=== PATIENT | female | born 1950 | race Caucasian/White ===

== ENCOUNTER 2022-01-04 19:48 | Inpatient (IN) ==
[2022-01-04] MEDS ORDERED: Morphine Sulfate 2 MG/ML SYRINGE IVP ONE (19:59)
[2022-01-04] MEDS ORDERED: Ondansetron 4 MG/2 ML VIAL IVP ONE ×2 (20:00→23:32)
[2022-01-04 20:43] LABS: Basophils # 0.1 K/mcL (0.0-0.2); Basophils % 0.8 %; Eosinophils # 0.2 K/mcL (0.0-0.6); Eosinophils % 1.7 %; Hematocrit 39.9 % (35.3-44.9); Hemoglobin 13.7 g/dL (11.5-15.4); Immature Granulocytes % 0.9 % (0-4); Lymphocytes # 3.4 K/mcL (0.6-4.6); Lymphocytes % 32.9 %; Mean Corpuscular HGB Conc 34.3 g/dL (31.6-35.5); Mean Corpuscular Hemoglobin 30.1 pg (28.0-33.3); Mean Corpuscular Volume 87.7 fL (83.0-100.0); Mean Platelet Volume 10.7 fL (9.4-12.4); Monocytes # 0.8 K/mcL (0.0-1.3); Monocytes % 7.2 %; Neutrophils # 5.9 K/mcL (1.6-8.9); Platelet Count 204 K/mcL (140-400); Red Blood Count 4.55 M/mcL (3.82-4.97); Segmented Neutrophils % 56.5 %; White Blood Count 10.5 K/mcL (4.3-11.1)
[2022-01-04 21:05] LABS: BUN/Creatinine Ratio 26 (6-26); Blood Urea Nitrogen 19 mg/dL (8-23); Calcium 9.7 mg/dL (8.6-10.3); Carbon Dioxide 24 mEq/L (23-29); Chloride 101 mEq/L (98-107); Glucose 135 mg/dL (70-105); Osmolality,Calculated 286 (280-300); Potassium 4.8 mEq/L (3.5-5.1); Sodium 136 mEq/L (136-145); eGFR For African Americans > 60 (> 60); eGFR For Non-African Americans > 60 (> 60)
[2022-01-04] MEDS ORDERED: *HR* FentaNYL (PF) 100 MCG/2 ML VIAL IVP ONE (21:46)
[2022-01-04] MEDS ORDERED: 0.9 % Sodium Chloride 1,000 ML IVC SCH (23:45)
[2022-01-04] MEDS ORDERED: Dextrose Gel 15 GM/37.5 ML TUBE PO PRN ×2 (23:52)
[2022-01-04] MEDS ORDERED: *HR* Dextrose 50 % in Water (Syg) 50 ML SYRINGE IVP PRN (23:52)
[2022-01-04] MEDS ORDERED: D5% in Water 1,000 ML IVC PRN (23:52)
[2022-01-04] MEDS ORDERED: Melatonin 3 MG TABLET PO PRN (23:53)
[2022-01-04] MEDS ORDERED: Ondansetron 4 MG/2 ML VIAL IVP PRN (23:53)
[2022-01-04] MEDS ORDERED: Naloxone 0.4 MG/ML INJ IVP PRN (23:53)
[2022-01-04] MEDS ORDERED: Acetaminophen 325 MG TABLET PO PRN ×2 (23:53)
[2022-01-05] MEDS: *HR* OxyCODONE Immed Rel 5 MG TABLET PO PRN ×3 (00:09→21:09)
[2022-01-05] MEDS: Insulin LISPRO 300 UNITS/3 ML VIAL SUBQ SCH ×3 (00:29→17:59)
[2022-01-05] MEDS ORDERED: *HR* Heparin 5,000 UNIT/ML VIAL SQ ONE (01:30)
[2022-01-05 06:53] LABS: Hematocrit 36.5 % (35.3-44.9); Mean Corpuscular HGB Conc 32.6 g/dL (31.6-35.5); Mean Corpuscular Hemoglobin 29.5 pg (28.0-33.3); Mean Corpuscular Volume 90.6 fL (83.0-100.0); Mean Platelet Volume 10.6 fL (9.4-12.4); Platelet Count 189 K/mcL (140-400); Red Blood Count 4.03 M/mcL (3.82-4.97); Red Cell Distribution Width 13.2 % (11.5-14.5); White Blood Count 11.9 K/mcL (4.3-11.1)
[2022-01-05 06:55] LABS: Hemoglobin 11.9 g/dL (11.5-15.4)
[2022-01-05 07:01] LABS: INR 1.1; Prothrombin Time 12.2 Seconds (9.4-12.1)
[2022-01-05 07:04] LABS: Activated Partial Thrombo Time 34.1 Seconds (26.0-36.0)
[2022-01-05 07:14] LABS: BUN/Creatinine Ratio 23 (6-26); Blood Urea Nitrogen 14 mg/dL (8-23); Calcium 8.9 mg/dL (8.6-10.3); Carbon Dioxide 27 mEq/L (23-29); Chloride 102 mEq/L (98-107); Glucose 267 mg/dL (70-105); Osmolality,Calculated 292 (280-300); Potassium 4.2 mEq/L (3.5-5.1); Sodium 136 mEq/L (136-145); eGFR For African Americans > 60 (> 60); eGFR For Non-African Americans > 60 (> 60)
[2022-01-05] MEDS ORDERED: Ringers Solution, Lactated 1,000 ML IVC SCH ×2 (08:15→14:59)
[2022-01-05] MEDS ORDERED: Ringers Solution, Lactated 1,000 ML ONE (08:22)
[2022-01-05] MEDS ORDERED: Famotidine 20 MG/2 ML VIAL IVP ONE (11:46)
[2022-01-05] MEDS ORDERED: Acetaminophen IV 1,000 MG/100 ML BAG IVPB ONE (11:46)
[2022-01-05] MEDS ORDERED: Ondansetron 4 MG/2 ML VIAL ONE (12:54)
[2022-01-05] MEDS ORDERED: *HR* Midazolam HCl 2 MG/2 ML VIAL ONE (12:54)
[2022-01-05] MEDS ORDERED: *HR* FentaNYL (PF) 100 MCG/2 ML VIAL ONE (12:54)
[2022-01-05] MEDS ORDERED: Lidocaine -MPF 2% 5 ML VIAL ONE (12:55)
[2022-01-05] MEDS ORDERED: *HR* Propofol 200 MG/20 ML VIAL IVP ONE (12:55)
[2022-01-05] MEDS ORDERED: Clindamycin 900 MG/50 ML 900 MG/50 ML IV.SOLN IVPB ONE ×2 (12:58→13:44)
[2022-01-05] MEDS ORDERED: Dextrose Gel 15 GM/37.5 ML TUBE PO PRN ×2 (14:59)
[2022-01-05] MEDS ORDERED: Acetaminophen 325 MG TABLET PO PRN (14:59)
[2022-01-05] MEDS ORDERED: *HR* Dextrose 50 % in Water (Syg) 50 ML SYRINGE IVP PRN (14:59)
[2022-01-05] MEDS ORDERED: D5% in Water 1,000 ML IVC PRN (14:59)
[2022-01-05] MEDS ORDERED: Ondansetron 4 MG/2 ML VIAL IVP PRN (14:59)
[2022-01-05] MEDS ORDERED: Naloxone 0.4 MG/ML INJ IVP PRN (14:59)
[2022-01-05] MEDS ORDERED: Melatonin 3 MG TABLET PO PRN (14:59)
[2022-01-05] MEDS ORDERED: Gabapentin 300 MG CAPSULE PO SCH (15:00)
[2022-01-05] MEDS ORDERED: Ondansetron 4 MG/2 ML VIAL IVP ONE (16:16)
[2022-01-05] MEDS: Gabapentin 300 MG CAPSULE PO SCH ×2 (17:10→21:24)
[2022-01-05] MEDS: amLODIPine 5 MG TABLET PO SCH (21:08)
[2022-01-05] MEDS: Clindamycin 900 MG/50 ML 900 MG/50 ML IV.SOLN IVPB SCH (21:24)
[2022-01-06] MEDS: Insulin LISPRO 300 UNITS/3 ML VIAL SUBQ SCH ×4 (00:59→17:13)
[2022-01-06] MEDS: Clindamycin 900 MG/50 ML 900 MG/50 ML IV.SOLN IVPB SCH (04:19)
[2022-01-06] MEDS: Acetaminophen 325 MG TABLET PO PRN (05:51)
[2022-01-06 09:00] LABS: Basophils # 0.1 K/mcL (0.0-0.2); Basophils % 0.8 %; Eosinophils # 0.2 K/mcL (0.0-0.6); Eosinophils % 2.5 %; Hematocrit 30.2 % (35.3-44.9); Immature Granulocytes % 0.6 % (0-4); Lymphocytes % 20.4 %; Mean Corpuscular HGB Conc 32.5 g/dL (31.6-35.5); Mean Corpuscular Hemoglobin 29.9 pg (28.0-33.3); Mean Corpuscular Volume 92.1 fL (83.0-100.0); Mean Platelet Volume 10.4 fL (9.4-12.4); Monocytes # 0.9 K/mcL (0.0-1.3); Monocytes % 9.1 %; Neutrophils # 6.4 K/mcL (1.6-8.9); Platelet Count 155 K/mcL (140-400); Red Blood Count 3.28 M/mcL (3.82-4.97); Red Cell Distribution Width 13.4 % (11.5-14.5); Segmented Neutrophils % 66.6 %; White Blood Count 9.6 K/mcL (4.3-11.1)
[2022-01-06] MEDS ORDERED: Cholecalciferol (D-3) 1,000 UNIT (25MCG) TABLET PO SCH (09:00)
[2022-01-06 09:01] LABS: Hemoglobin 9.8 g/dL (11.5-15.4)
[2022-01-06 09:18] LABS: Magnesium 1.6 mg/dL (1.6-2.6); Phosphorous 3.1 mg/dL (2.7-4.5)
[2022-01-06 09:19] LABS: BUN/Creatinine Ratio 19 (6-26); Blood Urea Nitrogen 11 mg/dL (8-23); Calcium 8.3 mg/dL (8.6-10.3); Carbon Dioxide 30 mEq/L (23-29); Chloride 101 mEq/L (98-107); Glucose 162 mg/dL (70-105); Osmolality,Calculated 285 (280-300); Potassium 4.3 mEq/L (3.5-5.1); Sodium 136 mEq/L (136-145); eGFR For African Americans > 60 (> 60); eGFR For Non-African Americans > 60 (> 60)
[2022-01-06] MEDS: *HR* OxyCODONE Immed Rel 5 MG TABLET PO PRN ×2 (10:35→18:34)
[2022-01-06] MEDS: amLODIPine 5 MG TABLET PO SCH ×2 (11:16→21:14)
[2022-01-06] MEDS: Aspirin Enteric Coated 325 MG Tablet PO SCH (11:23)
[2022-01-06] MEDS: Cholecalciferol (D-3) 1,000 UNIT (25MCG) TABLET PO SCH (11:23)
[2022-01-06] MEDS: Gabapentin 300 MG CAPSULE PO SCH ×3 (11:23→21:13)
[2022-01-07] MEDS: Acetaminophen 325 MG TABLET PO PRN ×3 (00:06→21:36)
[2022-01-07] MEDS: Insulin LISPRO 300 UNITS/3 ML VIAL SUBQ SCH ×5 (00:09→21:44)
[2022-01-07] MEDS: Cholecalciferol (D-3) 1,000 UNIT (25MCG) TABLET PO SCH (08:10)
[2022-01-07] MEDS: Aspirin Enteric Coated 325 MG Tablet PO SCH (08:10)
[2022-01-07] MEDS: Gabapentin 300 MG CAPSULE PO SCH ×3 (08:11→21:36)
[2022-01-07] MEDS: amLODIPine 5 MG TABLET PO SCH ×2 (08:11→21:37)
[2022-01-07] MEDS: *HR* OxyCODONE Immed Rel 5 MG TABLET PO PRN ×2 (08:13→15:56)
[2022-01-07] MEDS ORDERED: Ondansetron ODT 4 MG TAB.RAPDIS SL PRN (13:48)
[2022-01-08] MEDS: *HR* OxyCODONE Immed Rel 5 MG TABLET PO PRN (07:49)
[2022-01-08] MEDS: Cholecalciferol (D-3) 1,000 UNIT (25MCG) TABLET PO SCH (07:49)
[2022-01-08] MEDS: amLODIPine 5 MG TABLET PO SCH ×2 (07:49→20:13)
[2022-01-08] MEDS: Insulin LISPRO 300 UNITS/3 ML VIAL SUBQ SCH ×4 (07:50→22:04)
[2022-01-08] MEDS: Acetaminophen 325 MG TABLET PO PRN ×3 (07:51→21:10)
[2022-01-08] MEDS: Gabapentin 300 MG CAPSULE PO SCH ×3 (14:22→20:13)
[2022-01-08] MEDS: Aspirin Enteric Coated 325 MG Tablet PO SCH (14:28)
[2022-01-08] MEDS: Insulin DETEMIR 100 UNIT/ML X5UNITS SUBQ SCH (22:06)
[2022-01-09] MEDS: Acetaminophen 325 MG TABLET PO PRN ×3 (03:30→20:11)
[2022-01-09 04:59] LABS: Basophils # 0.1 K/mcL (0.0-0.2); Basophils % 0.7 %; Eosinophils # 0.4 K/mcL (0.0-0.6); Eosinophils % 4.9 %; Hematocrit 25.4 % (35.3-44.9); Hemoglobin 8.5 g/dL (11.5-15.4); Immature Granulocytes % 0.7 % (0-4); Lymphocytes # 1.9 K/mcL (0.6-4.6); Lymphocytes % 22.3 %; Mean Corpuscular HGB Conc 33.5 g/dL (31.6-35.5); Mean Corpuscular Hemoglobin 30.1 pg (28.0-33.3); Mean Corpuscular Volume 90.1 fL (83.0-100.0); Mean Platelet Volume 10.4 fL (9.4-12.4); Monocytes # 0.8 K/mcL (0.0-1.3); Monocytes % 9.2 %; Neutrophils # 5.3 K/mcL (1.6-8.9); Platelet Count 172 K/mcL (140-400); Red Blood Count 2.82 M/mcL (3.82-4.97); Red Cell Distribution Width 13.2 % (11.5-14.5); Segmented Neutrophils % 62.2 %; White Blood Count 8.4 K/mcL (4.3-11.1)
[2022-01-09 05:12] LABS: BUN/Creatinine Ratio 26 (6-26); Blood Urea Nitrogen 12 mg/dL (8-23); Calcium 8.4 mg/dL (8.6-10.3); Carbon Dioxide 26 mEq/L (23-29); Chloride 102 mEq/L (98-107); Glucose 182 mg/dL (70-105); Magnesium 1.8 mg/dL (1.6-2.6); Osmolality,Calculated 286 (280-300); Phosphorous 3.2 mg/dL (2.7-4.5); Potassium 3.8 mEq/L (3.5-5.1); Sodium 136 mEq/L (136-145); eGFR For African Americans > 60 (> 60); eGFR For Non-African Americans > 60 (> 60)
[2022-01-09] MEDS: Aspirin Enteric Coated 325 MG Tablet PO SCH (10:21)
[2022-01-09] MEDS: Gabapentin 300 MG CAPSULE PO SCH ×3 (10:21→20:12)
[2022-01-09] MEDS: Insulin LISPRO 300 UNITS/3 ML VIAL SUBQ SCH ×4 (10:21→20:12)
[2022-01-09] MEDS: amLODIPine 5 MG TABLET PO SCH ×2 (10:21→20:12)
[2022-01-09] MEDS: Cholecalciferol (D-3) 1,000 UNIT (25MCG) TABLET PO SCH (10:22)
[2022-01-09] MEDS: Insulin DETEMIR 100 UNIT/ML X5UNITS SUBQ SCH (20:12)
[2022-01-10] MEDS: Acetaminophen 325 MG TABLET PO PRN ×2 (03:29→09:30)
[2022-01-10 03:37] VITALS: BP 147/84; PULSE 87; TEMP 98.3; O2SAT 97
[2022-01-10] MEDS: Insulin LISPRO 300 UNITS/3 ML VIAL SUBQ SCH ×2 (09:30→15:03)
[2022-01-10] MEDS: Gabapentin 300 MG CAPSULE PO SCH (09:30)
[2022-01-10] MEDS: Aspirin Enteric Coated 325 MG Tablet PO SCH (09:30)
[2022-01-10] MEDS: Cholecalciferol (D-3) 1,000 UNIT (25MCG) TABLET PO SCH (09:30)
[2022-01-10] MEDS: amLODIPine 5 MG TABLET PO SCH (09:31)
== END 2022-01-10 15:58 | disposition home health service (06) | DRG 481 ==
LOC: EMEROOARM 19:48 → 4WAOSI 19:48 → SUATTDRO 23:08 → 4WAOSI 23:57
PROVIDERS: ADMIT Internal Medicine; ATTEND Internal Medicine